=== PATIENT | male | born 1980 | race Caucasian/White ===

== ENCOUNTER → 2024-09-30 | Outpatient (CLI) | payer OTHER ==
[2024-09-30 15:42] LABS: Follicle Stimulating Hormone 2.2 mIU/mL; Prolactin 6.7 ng/mL (2.100-17.000)
== END | disposition home or self-care (01) ==
LOC: LABWHC1 10:39
PROVIDERS: ATTEND Internal Medicine
DX: N62 Hypertrophy of breast (principal)
CPT/HCPCS: 36415; 82670; 83001; 83002; 84146; 84402; 84403